=== PATIENT | female | born 2000 | race Caucasian/White ===

== ENCOUNTER 2021-10-07 15:57 | Emergency (ER) | payer OTHER ==
[~2021-10-07] VITALS: Ht 170.2 cm; Wt 66.7 kg
--- NOTE | 2021-10-07 16:12 | NUR ---
PT CALLED IN LOBBY, NO ANSWER. ERMD AWARE.
[2021-10-07 16:31] VITALS: BP 119/75
[2021-10-07] MEDS ORDERED: KETOROLAC 30 MG/ML VIAL IM ONE (16:55)
--- NOTE | 2021-10-07 18:02 | NUR ---
20 year old female with c/o tailbone pain x 2 day s/p slip and fall. States she was walking down the stairs and accidentally slipped, landing on her tailbone. Denies any head injuries, LOC, or injuries elsewhere. Denies any incontinence, numbness or tingling in legs, loss of movement in legs. Has been taking Tylenol an Ibuprofen without any relief. States pain is aggravated with standing and sitting, slightly improved with laying down. No other concerns.
[2021-10-07] MEDS ORDERED: NAPR-1704 PO (18:15)
[2021-10-07 18:20] VITALS: BP 119/75
--- NOTE | 2021-10-07 18:20 | NUR ---
Patient discharged with v/s stable. Written and verbal after care instructions ABOUT TAILBONE INJURY given and explained. Patient alert, oriented and verbalized understanding of instructions. Ambulatory with steady gait. All questions addressed prior to discharge. ID band removed. Patient advised to follow up with PMD. Rx of NAPROSYN given. Patient educated on indication of medication including possible reaction and side effects. Opportunity to ask questions provided and answered.
== END 2021-10-07 18:20 | disposition home or self-care (01) ==
LOC: MED 15:57
DX: S30.0XXA Contusion of lower back and pelvis, initial encounter (principal); W18.30XA Fall on same level, unspecified, initial encounter; Y93.89 Activity, other specified; Y92.89 Other specified places as the place of occurrence of the external cause; Y99.8 Other external cause status
CPT/HCPCS: 72220; 99283